=== PATIENT | male | born 1955 | race Caucasian/White ===

== ENCOUNTER 2020-04-05 10:48 | Outpatient (CLI) | payer OTHER, SELFPAY ==
--- NOTE | 2020-04-05 | DI.US_ITS ---
EXAM: US LOWER EXTREMITY VENOUS RT CLINICAL HISTORY: RT LOWER EXT SWELLING, PAIN. TECHNIQUE: Ultrasound performed using standard protocol. COMPARISON: No exams were available for comparison FINDINGS: Duplex venous ultrasound was performed according to the usual protocol. The deep veins are freely com pressible throughout and there is normal flow augmentation with manual calf compression. 2D and Doppl er evaluation are unremarkable. IMPRESSION: No evidence of deep venous thrombosis of the right lower extremity DATA REPOSITORY:
== END 2020-04-05 11:08 ==
PROVIDERS: Visit Provider Internal Medicine
DX: R22.41 Localized swelling, mass and lump, right lower limb (principal); M79.604 Pain in right leg
CPT/HCPCS: 93971

== ENCOUNTER 2022-12-31 02:39 | Outpatient (CLI) | payer MEDICARE, SELFPAY ==
[2022-12-31 10:58] LABS: INR 1.4 (0.9-1.1); Prothrombin Time 14.5 sec (9.3-11.0)
== END 2022-12-31 02:40 | disposition home or self-care (01) ==
PROVIDERS: Visit Provider Internal Medicine Cardiovascular Disease
DX: I48.92 Unspecified atrial flutter (principal)
CPT/HCPCS: 36415; 85610

== ENCOUNTER 2023-01-14 03:09 | Outpatient (CLI) | payer MEDICARE, SELFPAY ==
[2023-01-14 10:51] LABS: Prothrombin Time 21.7 sec (9.3-11.0)
[2023-01-14 10:52] LABS: INR 2.1 (0.9-1.1)
== END 2023-01-14 03:10 | disposition home or self-care (01) ==
PROVIDERS: Visit Provider Internal Medicine Cardiovascular Disease
DX: I48.91 Unspecified atrial fibrillation (principal); Z79.01 Long term (current) use of anticoagulants
CPT/HCPCS: 36415; 85610

== ENCOUNTER 2023-01-28 03:17 | Outpatient (CLI) | payer MEDICARE, SELFPAY ==
[2023-01-28 10:14] LABS: INR 2.2 (0.9-1.1); Prothrombin Time 22.1 sec (9.3-11.0)
== END 2023-01-28 03:18 | disposition home or self-care (01) ==
PROVIDERS: PCP Internal Medicine Cardiovascular Disease; Visit Provider Internal Medicine Cardiovascular Disease
DX: I48.92 Unspecified atrial flutter (principal)
CPT/HCPCS: 36415; 85610

== ENCOUNTER 2023-10-25 15:28 | Outpatient (REF) | payer MEDICARE, SELFPAY | END 2023-10-25 15:29 | disposition home or self-care (01) | LOC: LBN 15:28 | PROVIDERS: PCP Internal Medicine Cardiovascular Disease; Visit Provider Nurse Practitioner Family | DX: R21 Rash and other nonspecific skin eruption (principal); L98.8 Other specified disorders of the skin and subcutaneous tissue | CPT/HCPCS: 87070; 87205 ==

== ENCOUNTER 2024-09-13 13:44 | Outpatient (CLI) | payer MEDICARE, SELFPAY ==
--- NOTE | 2024-09-13 11:17 | DI.RAD_ITS ---
Exam(s) XR CHEST 2V PA LATERAL EXAM: XR CHEST 2V PA LATERAL CLINICAL HISTORY: Cough, R05.9; eval pna TECHNIQUE: 2D digital imaging was performed. Two views. COMPARISON: No exams were available for comparison FINDINGS: HEART: Normal size. Aorta: Not dilated. PULMONARY VASCULATURE: Normal. MEDIASTINUM: Unremarkable. LUNGS: Clear. PLEURAL SPACE: No pleural effusion or pneumothorax. BONE:Unremarkable for age. SOFT TISSUES: Unremarkable. IMPRESSION: No acute abnormality. DATA REPOSITORY: RADIATION DOSE DELIVERED:
--- OUTSIDE RECORDS SUMMARY | 2024-09-13 13:49 | XMS_ITS | Clinical Summary ---
Author Organization [facility] [place] Address [address] [place] [address] Care Team Providers Care Advertising Account Manager Name Role Phone Diane Null) Primary Care Provider [phone] Connie Crews) Unavailable [phone] Source Comments NOTE: The information displayed by Care Everywhere is extracted from the complete medical record and may not identify all current or past patient conditions.[facility] Allergies Active Allergy Reactions Criticality Noted Date Comments Penicillins Class Rash 12/26/2017 Yet, patient is able to tolerate Amoxil and Keflex Medications Medication Sig Dispensed Refills Start Date End Date Status urine acetone test,strips (Ketostix) Misc StripsIndications :DM 1 Use as directed 100 Strip 2 12/05/2020 Active Fluticasone (FLONASE ALLERGY RELIEF) 50 mcg/actuation Nasl SpSnIndications:B ACTERIAL INFECTION Use 1 [place] in each nostril 2 times a day 16 g 3 12/06/2020 Active Apixaban (Eliquis) 5 mg Oral TabIndications:AT RIAL FLUTTER, UNSPECIFIED Take 1 tablet by mouth 2 times a day 200 tablet 3 01/06/2021 Active Insulin Glargine (LANTUS) 100 unit/mL SubQ SolnIndications:D M 1 Inject subcutaneously as directed for pump failure to control blood glucose 10 mL 3 01/24/2021 Active Mupirocin (CENTANY) 2 % Top OintIndications:I NFECTED SEBACEOUS CYST Apply to affected area(s) 2 times a day 22 g 06/22/2021 Active Active Problems Problem Noted Date Diagnosed Date SEASONAL ALLERGIC RHINITIS 11/27/2020 PROTHROMBOTIC STATE. 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 01/22/2018 DM 1 W LEFT PROLIFERATIVE RETINOPATHY 01/22/2018 OSTEOARTHRITIS OF BILAT KNEES 01/19/2018 CASE / CARE MGMT, DIABETES INTENSIVE MONITORING 01/15/2018 Overview (01/15/2018): Johanna Rutherford RN CDE [facility] [address] [address] Hours: Friday - [place]: 9:30am - 5:00pm If you need an appointment or assistance please call [phone] FITTING OR ADJUSTMENT OF INSULIN PUMP 01/13/2018 Overview (02/26/2021): Tandem T:SlimX2 insulin pump with Control IQ Dex[employer] G6 cgms Humalog insulin [id number] infusion sets Pump settings: Time Basal Rate ISR ICR Target 00:00 1.40->1.35 units/hr 1u: 12 mg/dl 1u: 4.5 g 120 mg/dl 06:00->4A 1.75 units/hr 1u: 12 mg/dl 1u: 4.0 g 120 mg/dl 14:00->2P 1.40 units/hr 1u: 12 mg/dl 1u: 4.0->3.5 g 120 mg/dl 22:00 1.40 units/hr 1u: 12 mg/dl 1u: 4.0 g 120 mg/dl Duration of Insulin: 3 hours Change Sleep Schedule to 11PM-9AM Turned Quick Bolus feature off PRESENCE OF CONTINUOUS GLUCOSE MONITOR 8 DM 1 01/12/2018 GOUT 01/12/2018 ADULT OBSTRUCTIVE SLEEP APNEA 01/12/2018 FHX OF PROSTATE CANCER 01/12/2018 Overview (01/12/2018): Father FHX OF COLON CANCER 01/12/2018 Overview (01/12/2018): Sister, diagnosed at age 50's. Did colonoscopy at [facility] on 2014 FHX OF LEUKEMIA 01/12/2018 Overview (01/12/2018): Sister FHX OF CAD 01/12/2018 Overview (01/12/2018): Mother SEVERE OBESITY (BMI >= 40) 01/12/2018 VENOUS STASIS EDEMA OF BILAT LEGS 01/12/2018 LONG-TERM NON WARFARIN ORAL ANTICOAGULANT THERAP Y 12/31/2017 Overview (04/14/2019): Apixaban (Eliquis) 5mg BID Indications: Aflutter, No TTE available Expected length of therapy: Further work up is needed Considerations: GI intolerance to Pradaxa. HC pool: P [facility] PHARMACY SERVICE Periop Guideline Reference: Go to Clinical Library ==> Search: Anticoagulation Management - Perioperative- Anticoagulation Services Guideline ATRIAL FLUTTER, UNSPECIFIED 12/30/2017 HTN (HYPERTENSION) 12/30/2017 Resolved Problems Problem Noted Date Diagnosed Date Resolved Date BILAT CATARACT 12/21/2018 12/29/2018 DM 2 W BILAT MODERATE NONPRO LIFERATIVE RETINOPATHY 01/22/2018 01/22/2018 DM 1 W BILAT MODERATE NONPRO LIFERATIVE RETINOPATHY 01/22/2018 01/22/2018 DM 2 12/30/2017 01/12/2018 ANTICOAGULATION MONITORING, PHYSICIAN MANAGED 12/27/19 18 12/31/2017 Overview (12/26/2017): Apixaban (Eliquis) 5mg BID Indications: To be determined per MD/econsult Expected end of therapy date: To be determined per MD/econsult Considerations: [facility] Pharmacy Safety Net Program pending eConsult HC pool: P [facility] PHARMACY SERVICE Periop Guideline Reference: Go to Clinical Library ==> Search: Anticoagulation Management - Perioperative- Anticoagulation Services Guideline Immunizations Name Administration Dates Next Due COVID-19 Moderna, External Administration 2020 COVID-19 mRNA, LNP-S, PF (Elias coello), Patient Reported / Not Verified 10/27/2020,09/28/2020 INFS Pres Free 18yrs-adult ( Flublok quadrivalent) recomb (influenza) 06/02/2019 INFS pres free 65 yrs and ov er high dose (Fluzone quadrivalent 06/20/2021 INFS pres free 6mos-adult (F luarix quadrivalent) (influenza) 06/10/2018 INFS, external administration 07/09/2020 PCV13 ([id number]) (Pneumococcal conjugate, 13 va lent) 06/02/2019 PPSV23 (Pneumococcal polysaccharide) 06/10/2018 Tdap (Tetanus, diphtheria, acellular pertussis) 12/06/2017 ZOS (Herpes zoster recombinant) Shingrix 022 Social History Tobacco Use Types Packs/Day Years Used Date Smoking Tobacco: Never Smokeless Tobacco: Never Tobacco Cessation:Counseling Given: No Alcohol Use Standard Drinks/Week Comments No 0 (1 standard drink = 0.6 oz pur e alcohol) Substance Use Types Use/Week Comments No Sex and Gender Information Value Date Recorded Sex Assigned at Not on file Gender Identity Not on file Sexual Orientation Not on file Last Filed Vital Signs Vital Sign Reading Time Taken Comments Blood Pressure 125/61 08/21/2021 11:59 AM PST Pulse 89 08/21/2021 11:59 AM PST Temperature 29.4 ??C (84.9 ??F) 08/21/2021 1 1:59 AM PST Respiratory Rate 20 02/19/2019 11:4 0 PM PDT Oxygen Saturation 98% 08/21/2021 11: 59 AM PST Inhaled Oxygen Concentration - - Weight 187.9 kg (414 lb 4.8 oz) 022 11:59 AM PST Height 177.8 cm (5' 10) 08/21/2021 11: 59 AM PST Body Mass Index 59.45 08/21/2021 11:59 AM PST Plan of Treatment Health Maintenance Due Date Last Done Comments HEPATITIS B HIGH RISK VACCINE (1) 2054 REVIEW: HEPATITIS B HIGH RISK VACCINE 2054 Care Teams Advertising Account Manager Relationship Specialty Start Date End Date Diane Null) [address] [place] [address] [phone] (Work) [phone] (Fax) PCP - General 12/25/17 Connie Crews) [address] [place] [address] [phone] (Work) Anesthesiologist Attending ? DM Type 1 / Pump Endocrine Diabetes/Metabolism 04/02/18
--- OUTSIDE RECORDS SUMMARY | 2024-09-13 13:49 | XMS_ITS | Clinical Summary ---
Author Organization [facility] Address [address] [place] [address] Phone Care Team Providers Care Machine Shop Instructor Name Role Phone Mei Otto Unavailable Conditions or Problems No information available. Medications No information available. Medications Administered No information available. Allergies, Adverse Reactions, Alerts No information available. Results Date Name Value Unit Range Flag Description Lab Report: COMPLETE BLOOD C OUNT MPV 8.9 UM*3 fL 7.4-10.4 Platelet me an volume [Entitic volume] in Blood by Baljinder RDW 13.0 % 11.5-14.5 Erythrocyte distribution width [Ratio] by Automated count MCHC 34.6 % 31.0-35.5 MCHC [Mass/ volume] by Automated count MCH 29.2 pg 26-34 MCH [Entitic mass] by Automated count MCV 84.4 fL 80-99 MCV [Entitic volume] by Automated count RBC 5.60 10*6/mm3 3.9-5.5 H Erythrocytes [#/volume] in Blood by Automated count BASOPH COUNT 0.1 10*3/mm3 0-0.30 Basophi ls [#/volume] in Blood by Manual count EOS COUNT 0.3 10*3/mm3 0-0.45 eosinophil count, blood MONOCYTE CNT 0.5 10*3/mm3 0-0.8 monocyt e count, blood LYMPH COUNT 1.9 10*3/mm3 1.0-4.0 lymphocy te count, blood NEUTRO COUNT 7.9 10*3/mm3 1.8-7.7 H neutrop hil count, blood BASOPHIL % 0.6 % 0-3 Basophils/ 100 leukocytes in Blood by Manual count EOSINOPHIL % 2.4 % 0-8 Eosinoph ils/100 leukocytes in Blood by Manual count MONOCYTE % 5.1 % 0-12 Monocytes/ 100 leukocytes in Blood by Automated count LYMPHS % 17.4 % 20-44 L Lymphocytes/ 100 leukocytes in Blood by Automated count PMN % 74.5 % 41-75 Neutrophils/1 00 leukocytes in Blood by Automated count PLATELETS 304 10*3/mm3 140-440 Platelets [#/volume] in Blood by Automated count HCT 47.2 % 39.8-52.0 Hematocrit [Volume Fraction] of Blood by Automated count HGB 16.3 g/dL 13.6-16.1 H Hemoglobin [Mass/volume] in Blood WBC 10.7 10*3/mm3 4.0-10.0 H Leukocytes [#/volume] in Blood by Automated count Lab Report: COMPREHENSIVE ME TABOLIC PANEL, GFR ESTIMATED (CALC), GLOBULI ... LIPASE SERUM 238 U/L 70-350 lipase, serum AMYLASE 56 U/L 30-118 Amylase [Enzy matic activity/volume] in Serum or Plasma A/G RATIO 0.8 Albumin/Kae bulin [Mass Ratio] in Serum or Plasma GLOBULIN TOT 4.3 g/dL 2.3-4.0 H Globulin [Mass/volume] in Serum GFRC > 60 mL/min/1 .73m2 > 60 Glomerular Filtration Rate Calculation SGPT (ALT) 50 U/L 10-49 H Alanine aminotransferase [Enzymatic activity/volume] in Serum or Plasma SGOT (AST) 33 U/L 15-40 Aspartate aminotransferase [Enzymatic activity/volume] in Serum or Plasma ALK PHOS 182 U/L 50-136 H Alkaline ish sphatase [Enzymatic activity/volume] in Blood BILI TOTAL 0.3 mg/dL 0.3-1.2 Bilirubin. total [Mass/volume] in Serum or Plasma ALBUMIN 3.4 g/dL 3.4-5.5 Albumin [Mass/volume] in Serum or Plasma PROTEIN, TOT 7.7 g/dL 6.4-8.3 Protein [Mass/volume] in Serum or Plasma CALCIUM 9.1 mg/dL 8.3-10.3 Calcium [Moles/volume] in Serum or Plasma CREATININE 1.1 mg/dL 0.5-1.3 Creatinine [Mass/volume] in Serum or Plasma BUN 17 mg/dL 9-23 Urea nitrogen [Mass/volume] in Serum or Plasma BG RANDOM 123 mg/dL 70-100 H Glucose [Mass/volume] in Blood ANION GAP 7 mEq/L 2-13 Anion gap 4 in Serum or Plasma CO2 TOTAL 30 MEQ/L mmol/L 22-34 carbon didi xide, serum, total CL SERUM 100 meq/L 99-113 Chloride [Moles/volume] in Serum or Plasma K SERUM 3.5 meq/L 3.5-5.5 Potassium [Moles/volume] in Serum or Plasma SODIUM 137 MEQ/L mmol/L 135-145 Sodium [Moles/volume] in Serum or Plasma Lab Report: TROPONIN ULTRA TROPONIN T < 0.015 ng/mL 0.0-0.779 troponin T Lab Report: THYROID STIMULAT ING HORMONE TSH ULTRA 3.660 u[iU]/mL 0.550-4.780 thyroi d stimulating hormone (TSH), ultra sensitive Lab Report: URINALYSIS EMERG ENCY DEPT WBC ESTERASE NEG NEGATIVE leukocy te (WBC) esterase, urine NITRITE UA NEG NEGATIVE Nitrite U rine UROBILINO UR 0.2 (?) {Nikki _U}/dL 0.2 urobilinogen, urine PROTEIN UR NEG mg/dL NEGATIVE Protein [ Mass] in Urine collected for unspecified duration BLOOD UR NEG NEGATIVE BLOOD, URIN E (hematuria) KETONES UA NEG mg/dL NEGATIVE Ketones [Mass/volume] in Urine by Test strip BILIRUBIN UR NEG NEGATIVE Bilirub in.total [Presence] in Urine by Test strip GLUCOSE UA NEG mg/dL NEGATIVE Glucose U rine SPEC GR URIN 1.015 1.005-1.025 Spec ific gravity of Urine by Test strip PH U QN 6.0 5.5-7.5 ph, urine, quantitative APPEARANCE U CLEAR CLEAR Appearan ce of Urine UA COLOR YELLOW Color of Uri ne Lab Report: GLUCOSE FOR POCT BG FINGER 103 72-137 blood gluco se, finger stick Plan of Care No information available. Procedures No information available. Vital Signs No information available. Immunizations No information available. Advance Directives No information available.
--- OUTSIDE RECORDS SUMMARY | 2024-09-13 13:49 | XMS_ITS | Encounter Summary ---
Author Organization [facility] Address [phone] [facility] [place] [address] Care Team Providers Care Language Instructor Name Role Phone Zuniga, Sanam Little DO Primary Care Provider Encounter Details Date Type Department Care Team (Late st Contact Info) Description 05/20/2024 8:30 AM EDT Office Visit [facility] [address] [address] Karlos Thayer DPM [address] [address] [email or web address] Tinea pedis of both feet (Primary Dx); Onychomycosis; Pain in toes of both feet; Pain in left foot Social History Tobacco Use Types Packs/Day Years Used Date Smoking Tobacco: Unknown Education Answer Date Recorded Are you interested in more education? Not on sergey e 12/07/2022 Are you concerned about learning? Not on file 12/07/2022 No 12/07/2022 No 12/07/2022 Digital Access Answer Date Recorded No 01/05/2023 No 01/05/2023 Reliable internet access at home? Not on file 01/05/2023 Device with a working camera? Not on file Sex and Gender Information Value Date Recorded Sex Assigned at Not on file Gender Identity Not on file Sexual Orientation Not on file documented as of this encounter Progress Notes * Karlos Thayer DPM - 05/20/2024 8:30 AM EDT Images from the original note were not included. CC: Tinea pedis, pain in toes HPI: This is a 69 y.o. male patient with past medical history as below presenting today for follow-up tinea pedis and toe pain. Pressure injury has resolved. Reports he is still dealing with skin irritation to the plantar lateral aspects of his feet. Wondering if he should additionally use spray inhis shoewear. He does not typically wear socks in his shoes because it is more comfortable and thiscould be part of his problem. Difficult to apply lotion himself so his significant other does help.Pain secondary to elongated, thickened nails. Patient does have new pain to left foot that he contributes to gouty flare. Recently started allopurinol which helps him significantly. Patient denies other conservative therapies or acute constitutional symptoms. Previsit review of the patient's medical record. Alert oriented x3. The patient is calm (no distress), Alert, Eye Contact, Normal Affect, Cooperative, Normal Speech. Appearance and Behavior Appropriate for Age. Medical record EPIC reviewed. The medication and social history were reconciled. REVIEW OF SYSTEMS: The following systems were reviewed and were negative unless otherwise mentionedin this note: Constitutional, Eyes, Ears, Cardiovascular, Respiratory, Gastrointestinal, Genitourinary, Musculoskeletal, Skin, Neurologic, Psychiatric, Endocrine, and Hematology. Medical history/medications/allergies reviewed with patient, there have been no changes since the patients last visit with primary care. Cayden Lopez is a 69 y.o. male with the following history as recorded in [facility]: Patient Active Problem List Diagnosis Date Noted Class 3 severe obesity due to excess calories with serious comorbidity and body mass index (BMI) of50.0 to 59.9 in adult 08/12/2023 Diabetes mellitus 08/12/2023 Primary hypertension 08/12/2023 Atrial fibrillation 08/12/2023 Obstructive sleep apnea syndrome 08/12/2023 Mixed hyperlipidemia 08/12/2023 Current Outpatient Medications Medication Sig Dispense Refill Last Dispense buPROPion (WELLBUTRIN SR) 150 MG SR 12 hr tablet Unknown (patient-reported) clotrimazole-betamethasone (LOTRISONE) cream Apply topically 2 (two) times a day. 90 g 4 Unknown (outside pharmacy) furosemide (LASIX) 20 MG tablet Unknown (patient-reported) JANTOVEN 2.5 mg tablet Unknown (patient-reported) metFORMIN (GLUCOPHAGE-XR) 500 MG 24 hr tablet Unknown (patient-reported) NOVOLOG U-100 INSULIN ASPART 100 unit/mL injection vial Unknown (patient-reported) OZEMPIC 0.25 mg or 0.5 mg (2 mg/3 mL) subcutaneous injection pen Unknown (patient-reported) quinapriL (ACCUPRIL) 10 MG tablet Take 25 mg by mouth daily. Unknown (patient-reported) simvastatin (ZOCOR) 40 MG tablet Unknown (patient-reported) No current facility-administered medications for this visit. Allergies: Penicillins No past medical history on file. No past surgical history on file. No family history on file. Social History Tobacco Use Smoking status: Unknown Smokeless tobacco: Not on file Substance Use Topics Alcohol use: Not on file OBJECTIVE EXAM: Vascular: Pedal pulses palpable 2/4 DP/PT b/l. CR <3 sec to digits b/l. Hair growth present, negative Hohmann???s or García???s sign, no palpable cord to b/l calves. Dermatologic: No open wounds, no ecchymosis to lateral left heel. No signs of pressure injury. Bilateral plantar foot with diffuse annular scaling. Nails discolored and thickened indicative of onychomycosis. Erythema has resolved. Psychiatric/Neurological: Appropriate affect, alert and oriented to person, place and time, no significant abnormality in coordination appreciated. Protective sensation intact via Ipswitch b/l, proprioception intact to peripheral lower extremities Musculoskeletal: Gait analysis reveals non-antalgic gait. Standing there is no significant hindfootmalalignment or asymmetry. b/l 1st MPJ ROM intact, midtarsal joint ROM intact, STJ ROM intact, AJ ROM intact with adequate ROM in knee extension and flexion. Muscle strength 5/5 to all compartments b/l d/p/i/e. Pain to palpation all toes. Mild tenderness to palpation left second MPJ. Radiographic examination: Previous x-ray read below No signs of fracture or dislocation. Soft tissue anatomy within normal limits. No signs of infection. ASSESSMENT: Tinea pedis, bilateral Stage I pressure injury left heel, resolved Pain in toes of both feet Onychomycosis Left foot pain PLAN: Extended conversation concerning the above assessment(s) along with local anatomic structures, aggravating factors, conservative and interventional treatments as well as review of prior documentationand other pertinent materials. Explained etiology of tinea pedis. Explained that topical treatment or oral terbinafine are the best treatments for tinea pedis. Recommended Tinactin spray and patient shoes as well as changing socksat least once per day to decrease chance for infection. Continue with Lotrisone as needed. If symptoms worsen or continue can consider regular use of topical antifungal medications such as ketoconazole, econazole. He can also utilize fungal spray if difficult to apply cream daily. Also should sprayshoewear. Would recommend increased frequency of application in addition to wearing socks more frequently. Patient also has symptoms to hands and head and should consider dermatology evaluation Patient to continue to decrease pressure to left heel especially while sleeping with offloading blankets. He can also pursue Prevalon boot to help with offloading as well. Debridement of nails was accomplished utilizing both manual electrical means, bilaterally x 10 by 50% of original thickness and in length. This was accomplished without incident. Post debridement instructions were given and fully understood by the patient. All questions were answered. We discussed different styles of socks for patient to wear. Recommend Sharath white cotton sock. Patient to continue to monitor pain to left second toe and first interspace. He contributes to gouty flare. Recently started allopurinol which has helped. If symptoms continue we can consider oral anti-inflammatory medication or metatarsal pad offloading. Greater than 20 minutes spent in consultation with this patient as well as charting, including a component of previsit evaluation chart review and image review as needed prior to discussing with the patient. Additional time was spent discussing the diagnosis and care. Greater than 50% of that time was spent discussing the presenting condition and pathology as well as direct patient examination, counseling the patient on their condition, and coordinating care with a patient specific treatment plan to ensure a favorable outcome. All questions were answered with the patient and/or accompanying proxy demonstrating verbal understanding of the above. Advised the patient to contact our offices if any questions, concerns, or increased symptoms arise. Return to office: 3 months, evaluate tinea pedis, deep tissue injuries, nail care if needed Karlos Thayer DPM This note was generated with a voice recognition software please excuse any errors or omissions documented in this encounter Plan of Treatment Upcoming Encounters Date Type Department Care Team (Late st Contact Info) Description 11/18/2024 9:15 AM EDT Office Visit [facility] [address] [address] Karlos Thayer DPM [address] [address] [email or web address] documented as of this encounter Visit Diagnoses Diagnosis Tinea pedis of both feet- Primary Onychomycosis Dermatophytosis of nail Pain in toes of both feet Pain in left foot Pain in soft tissues of limb documented in this encounter Care Teams Language Instructor Relationship Specialty Start Date End Date Sanam Zuniga DO [address] [place] [phone] PCP - General Family Medicine 12/04/22 documented as of this encounter Additional Source Comments The information contained in this document represents components of the legal health record. It is not the complete legal health record.[facility]
--- OUTSIDE RECORDS SUMMARY | 2024-09-13 13:49 | XMS_ITS | Clinical Summary ---
Author Organization [facility] Address [phone] Formerly [facility] [address] [place] [address] Care Team Providers Care Diesel Maintenance Electrician Name Role Phone Efrain Sanam Little DO Primary Care Provider Allergies Active Allergy Reactions Criticality Noted Date Comments Penicillins Rash Low 12/05/2023 Medications Medication Sig Dispensed Refills Start Date End Date Status buPROPion (WELLBUTRIN SR) 150 MG SR 12 hr tablet 05/05/2023 Active quinapriL (ACCUPRIL) 10 MG tablet Take 25 mg by mouth daily. Active simvastatin (ZOCOR) 40 MG tablet 05/05/2023 Active NOVOLOG U-100 INSULIN ASPART 100 unit/mL injection vial 06/22/2023 Active metFORMIN (GLUCOPHAGE-XR) 500 MG 24 hr tablet 05/25/2023 Active OZEMPIC 0.25 mg or 0.5 mg (2 mg/3 mL) subcutaneous injection pen 06/29/2023 Active JANTOVEN 2.5 mg tablet 05/28/2023 Ac tive furosemide (LASIX) 20 MG tablet 03/08/2022 Active clotrimazole-betametha sone (LOTRISONE) cream Apply topically 2 (two) times a day. 90 g 4 12/02/2023 Active Active Problems Problem Noted Date Diagnosed Date Class 3 severe obesity due t o excess calories with serious comorbidity and body mass index (BMI) of 50.0 to 59.9 in adult 08/12/2023 Overview (08/12/2023): He was normal healthy weight until approximately age 39. Was able to lose weight in the past couple of years with a low calorie meal replacement program. Has never tried medicine has been told he should get surgery but has not considered seriously. Contributions to obesity include family history lack of exercise dining out. Complications of obesity include sleep apnea, diabetes, A-fib, hyperlipidemia. He is a surgical candidate. He is a candidate for antiobesity medicines. Would not use phentermine due to A-fib and hypertension. Assessment & Plan (08/12/2023 1:08 PM EST): Reviewed lifestyle medications and surgery with him in some detail. He was prescribed Ozempic by his manager administration and he took it briefly but had to stop for procedure and has not resumed it. Discussed with him that either Ozempic or Mounjaro would be excellent choices given his diabetes but given his high BMI it would be appropriate to consider surgery as well. He did ask briefly about balloon insertion as it had been recommended by his advertising consultant. Reviewed this briefly with him as well as endoscopic sleeve gastrectomy and explained insurance issues with these. After discussion he opted to learn about surgery. Additionally he is meeting with his manager administration soon and will discuss either resuming Ozempic or seeing if he can get on Mounjaro in the meantime. Recommended if he does get surgery to follow-up with me 6 months after surgery. Diabetes mellitus 08/12/2023 Overview (08/12/2023): He is on insulin using a pump. He gets care through the [facility] and I do not have access to records for further details on his diabetes. Primary hypertension 08/12/2023 Overview (08/12/2023): He is on Accupril Atrial fibrillation 08/12/2023 Overview (08/12/2023): He is on Coumadin Obstructive sleep apnea syndrome 08/12/2023 Overview (08/12/2023): He uses CPAP Mixed hyperlipidemia 08/12/2023 Overview (08/12/2023): He takes Lipitor Encounters Date Type Department Care Team Description 08/19/2024 9:00 AM EST Office Visit [facility] [address] [address] Karlos Thayer DPM Onychomycosis (Primary Dx); Pain in toes of both feet; Tinea pedis of both feet from Last 3 Months Social History Tobacco Use Types Packs/Day Years Used Date Smoking Tobacco: Unknown Tobacco Cessation:Counseling Given: Not Answered Education Answer Date Recorded Are you interested [...] Sign Reading Time Taken Comments Blood Pressure 154/85 12/05/2023 6:04 PM EDT Pulse 98 12/05/2023 6:04 PM EDT Temperature 38.1 ??C (100.6 ??F) 12/05/2023 6:04 PM E DT Respiratory Rate 24 12/05/2023 6:04 PM EDT Oxygen Saturation 96% 12/05/2023 6:04 PM EDT Inhaled Oxygen Concentration - - Weight 164.2 kg (362 lb) 12/05/2023 6:04 PM EDT Height 177.8 cm (5' 10) 12/05/2023 6:04 PM EDT Body Mass Index 51.94 12/05/2023 6:04 PM EDT Plan of Treatment Upcoming Encounters Date Type Department Care Team (Late st Contact Info) Description 11/18/2024 9:15 AM EDT Office Visit [facility] [address] [address] Karlos Thayer DPM [address] [address] Health Maintenance Due Date Last Done Comments Adult Td,Tdap Booster 1954 BLOOD PRESSURE 1954 DEPRESSION SCREENING 1966 SMOKING Hx and SMOKELESS TOBACCO SCREENING 1967 HEPATITIS B SCREENING 1972 HEPATITIS C SCREENING 1972 COLOGUARD 1999 COLONOSCOPY 1999 COLORECTAL CANCER SCREENING 1999 FIT TEST 1999 FOBT 1999 SIGMOIDOSCOPY 1999 VIRTUAL COLONOSCOPY 1999 ZOSTER VACCINES (1 of 2) 2004 RSV VACCINE (1 - Risk 60-74 years 1-dose series) 2014 INFLUENZA VACCINE (#1) 2024 COVID-19 VACCINE ( season) 2024 02/25/2022, 10/27/2020, 09/28/2020 HEMOGLOBIN A1C 01/23/2025 07/25/2024, 02/09, 11/28/2023, Additional history exists CREATININE LEVEL 03/05/2025 03/05/2024, 12/16/2023 POTASSIUM LEVEL 03/05/2025 03/05/2024 DIABETIC EYE EXAM 05/20/2025 05/20/2024, , 01/22/2018, Additional history exists PNEUMOCOCCAL VACCINES (50+ years) Completed 02/25/2022 HEPATITIS A VACCINES Aged Out No long er eligible based on patient's age to complete this topic HEPATITIS B VACCINES Aged Out No long er eligible based on patient's age to complete this topic HIB VACCINES Aged Out No longer eligi ble based on patient's age to complete this topic MENINGOCOCCAL VACCINES (ACWY) Aged Out No longer eligible based on patient's age to complete this topic Medical Devices Not on file Care Teams Diesel Maintenance Electrician Relationship Specialty Start Date End Date Sanam Zuniga DO [address] [place] [phone] PCP - General Family Medicine 12/04/22 Additional Source Comments The information contained in this document represents components of the legal health record. It is not the complete legal health record.[facility]
--- OUTSIDE RECORDS SUMMARY | 2024-09-13 13:49 | XMS_ITS | Encounter Summary ---
Author Organization [facility] Address [phone] Formerly [facility] [place] [address] Care Team Providers Care Wood Lathe Operator Name Role Phone Zuniga, Sanam Little DO Primary Care Provider Encounter Details Date Type Department Care Team (Late st Contact Info) Description 02/19/2024 8:45 AM EDT Office Visit [facility] [address] [address] Karlos Thayer DPM [address] [address] [email or web address] Tinea pedis of both feet (Primary Dx); Onychomycosis; Pain in toes of both feet Social History Tobacco Use Types Packs/Day Years [...] Progress Notes * Karlos Thayer DPM - 02/19/2024 8:45 AM EDT Images from the original note were not included. CC: Tinea pedis, pain in toes HPI: This is a 68 y.o. male patient with past medical history [...] help.Pain secondary to elongated, thickened nails. Patient denies other conservative therapies or acute c onstitutional symptoms. Previsit review of the patient's medical [...] with primary care. Cayden Lopez is a 68 y.o. male [facility] the [facility] Patient Active Problem List Diagnosis Date Noted [...] signs of pressure injury. Bilateral plantar foot diffusely erythematous with annular scaling. Nails discolored and thickened indicative of onychomycosis. Psychiatric/Neurological: Appropriate affect, alert and oriented to [...] b/l d/p/i/e. Pain to palpation all toes. Radiographic examination: Previous x-ray read below No signs of fracture or dislocation. Soft tissue anatomy within normal limits. No signs of infection. ASSESSMENT: Tinea pedis, bilateral Stage I pressure injury left heel, resolved Pain in toes of both feet Onychomycosis PLAN: Extended conversation concerning the above assessment(s) [...] to decrease chance for infection. Continue with Lotrisone. He can also utilize fungal spray if difficult to apply cream daily. Also should spray shoewear. Would recommend increased frequency of application in addition to wearing socks more frequently. Patient to continue to decrease pressure to [...] to wear. Recommend Sharath white cotton sock. Greater than 20 minutes spent in consultation [...] Description 11/18/2024 9:15 AM EDT Office Visit [facility] [address] [address] Karlos Thayer DPM [address] [address] [email or web address] documented as of this encounter Visit Diagnoses Diagnosis Tinea pedis of both feet- Primary Onychomycosis Dermatophytosis of nail Pain in toes of both feet documented in this encounter Care Teams Wood Lathe Operator Relationship Specialty Start Date End Date Sanam Zuniga DO [address] [place] [phone] PCP - General Family Medicine 12/04/22 documented as of this encounter Additional Source Comments The information contained in this document represents components of the legal health record. It is not the complete legal health record.[facility]
--- OUTSIDE RECORDS SUMMARY | 2024-09-13 13:49 | XMS_ITS | Encounter Summary ---
Author Organization [facility] Address [phone] [facility] [employer] [address] Care Team Providers Care Digital Printer Operator Name Role Phone Efrain Sanam Little DO Primary Care Provider [phone] Reason for Visit * Reason Comments flu like symptoms Encounter Details Date Type Department Care Team (Late st Contact Info) Description 12/05/2023 5:28 PM EDT - 12/05/2023 9:16 PM EDT Emergency [facility] [address] [place] [address] Discharge Disposition: Left Without Being Seen Social History Tobacco Use Types Packs/Day Years [...] on file documented as of this encounter Last Filed Vital Signs Vital Sign Reading [...] Mass Index 51.94 12/05/2023 6:04 PM EDT documented in this encounter Medications at Time of Discharge Medication Sig Dispensed Refills Start Date End Date buPROPion (WELLBUTRIN SR) 150 MG SR 12 hr tablet 05/05/2023 clotrimazole-betamethason e (LOTRISONE) cream Apply topically 2 (two) times a day. 90 g 4 12/02/2023 furosemide (LASIX) 20 MG tablet 03/08/2022 JANTOVEN 2.5 mg tablet 05/28/2023 metFORMIN (GLUCOPHAGE-XR) 500 MG 24 hr tablet 05/25/2023 NOVOLOG U-100 INSULIN ASPART 100 unit/mL injection vial 06/22/2023 OZEMPIC 0.25 mg or 0.5 mg (2 mg/3 mL) subcutaneous injection pen 06/29/2023 quinapriL (ACCUPRIL) 10 MG tablet Take 25 mg by mouth daily. simvastatin (ZOCOR) 40 MG tablet 05/05/2023 documented as of this encounter ED Notes * Wanda Castillo RN - 12/05/2023 6:04 PM EDT Pt arrives with sore throat, fatigue and inability to keep anything down since friday documented in this encounter Plan of Treatment Upcoming Encounters Date Type Department Care Team (Late st Contact Info) Description 11/18/2024 9:15 AM EDT Office Visit [facility] [address] [address] Karlos Thayer DPM [address] [address] documented as of this encounter Procedures Procedure Name Priority Date/Time Associated Diagnosis Comments RAPID STREP SCREEN W/ REFLEX STAT 12/05/2023 6:06 PM EDT COVID PANDEMIC RESPIRATORY VIRAL ORDER (PRO) STAT 12/05/2023 6:06 PM EDT THROAT CULTURE STAT 12/05/2023 6:06 PM EDT documented in this encounter Results * Throat culture (12/05/2023 6:06 PM EDT) Special Requests None 12/06/2023 8:57 AM EDT [facility] Beta Strep Culture NORMAL GOLDY PRESENT 12/06/2023 8:57 AM EDT [facility] Throat 12/05/2023 6:06 PM EDT 12/05/2023 6:32 PM EDT Protocol [facility] Emergency MICROBIOLOGY - GE NERAL ORDERABLES Performing Organization Address City/[facility]/ZIP Co de Phone Number [facility] [address] [phone] * COVID Pandemic Respiratory Viral Order (PRO) (12/05/2023 6:06 PM EDT) [facility] Test Ordered Rapid COVID, Flu, RSV has been ordered [facility] SPECIMEN SOURCE/DESCR IPTION NASOPHARYNGEAL SWAB [facility] SARS-CoV 2 (COVID-19) PCR Negative Negative [facility] Influenza A PCR NEGATIVE for INFLUENZA A NEGATIVE for INFLUENZA A [facility] Influenza B PCR NEGATIVE for INFLUENZA B NEGATIVE for INFLUENZA B [facility] RSV PCR NEGATIVE for RSV NEGATIVE for RSV [facility] Other (Nasopharyngeal swab) 12/05/2023 6:06 PM EDT 12/05/2023 6:29 PM EDT Protocol [facility] Emergency BODY FLUIDS AND S TOOLS ORDERABLES Performing Organization Address City/[facility]/ZIP Co de Phone Number [facility] [address] [phone] * Rapid strep screen w/ reflex (12/05/2023 6:06 PM EDT) RAPID STREP SCREEN NEGATIVE for GROUP A BETA STREP SCREEN [facility] Other (Throat) 12/05/2023 6: 06 PM EDT 12/05/2023 6:32 PM EDT Protocol [facility] Emergency MICROBIOLOGY - GE NERAL ORDERABLES [facility] [address] [place] [address] documented in this encounter Visit Diagnoses Not on filedocumented in this encounter Additional Health Concerns Infection Onset Date Last Indicated Resolved Time CoV-Risk 12/05/2023 12/05/2023 12/16/2023 1:22 AM EDT documented as of this encounter Care Teams Digital Printer Operator Relationship Specialty Start Date End Date Sanam Zuniga DO [address] [facility] [address] [place] [phone] PCP - General Family Medicine 12/04/22 documented as of this encounter Additional Source Comments The information contained in this document represents components of the legal health record. It is not the complete legal health record.[facility]
--- OUTSIDE RECORDS SUMMARY | 2024-09-13 13:49 | XMS_ITS | Encounter Summary ---
Author Organization [facility] Address [phone] [facility] [place] [address] Care Team Providers Care Seismic Engineer Name Role Phone Efrain Sanam Little DO Primary Care Provider [phone] Reason for Visit * Reason Onset Date Comments Labs 07/30/2023 Encounter Details Date Type Department Care Team (Late st Contact Info) Description 07/30/2023 Telephone [facility] [address] [place] [address] Order Mode, Investment Banking Analyst [address] [place] [address] Labs Social History Tobacco Use Types Packs/Day Years Used Date Smoking Tobacco: Never Assessed Education Answer Date Recorded Are you interested [...] as of this encounter Progress Notes * Denia Brenner - 07/30/2023 3:18 PM EST LVM for pt To complete new pt labs 2 weeks prior to upcoming appt on 08/12/23 Lab prep/Lab location sent via [facility] documented in this encounter Plan of Treatment Upcoming Encounters Date Type Department Care Team (Late st Contact Info) Description 11/18/2024 9:15 AM EDT Office Visit [facility] [address] [address] Karlos Thayer DPM [address] [address] [email or web address] documented as of this encounter Visit Diagnoses Not on filedocumented in this encounter Care Teams Seismic Engineer Relationship Specialty Start Date End Date Sanam Zuniga DO [address] [place] [phone] PCP - General Family Medicine 12/04/22 documented as of this encounter Additional Source Comments The information contained in this document represents components of the legal health record. It is not the complete legal health record.[facility]
--- OUTSIDE RECORDS SUMMARY | 2024-09-13 13:49 | XMS_ITS | Encounter Summary ---
Author Organization [facility] Address [phone] [facility] [email or web address] [address] Care Team Providers Care Blueberry Grower Name Role Phone Zuniga, Sanam Little DO Primary Care Provider [phone] Encounter Details Date Type Department Care Team (Late st Contact Info) Description 12/02/2023 9:30 AM EDT Office Visit [facility] [address] [address] Karlos Thayer DPM [address] [address] [email or web address] Tinea pedis of both feet (Primary [...] Progress Notes * Karlos Thayer DPM - 12/02/2023 9:30 AM EDT Images from the original note were not included. CC: Tinea pedis HPI: This is a 68 y.o. male patient with past medical history as below presenting today for follow-up left heel pain and pressure injury. Also to follow-up with athletes feet. Patient states he no longer has left heel pain. Pressure injury has resolved. Reports he is still dealing with skin irritation to the plantar lateral aspects of his feet. Has been utilizing a cream. In addition he has been using foot powder to help dry out his feet. He does not typically wear socks in his shoes because itis more comfortable and this could be part of his problem. Difficult to apply lotion himself so he applies it 3 times daily with the help of his significant other. Pain secondary to elongated, thickened nails. Patient denies [...] with the following history as recorded in [facility]: Patient Active Problem List Diagnosis Date [...] current facility-administered medications for this visit. Allergies: Patient has no allergy information on record. No past medical history on file. No [...] spray if difficult to apply cream daily. Would recommend increased frequency of applicationin addition to wearing socks more frequently. Patient [...] Description 11/18/2024 9:15 AM EDT Office Visit [facility] [address] [address] Karlos Thayer DPM [address] [address] [email or web address] documented as of this encounter Visit Diagnoses Diagnosis Tinea pedis of both feet- Primary Onychomycosis Dermatophytosis of nail Pain in toes of both feet documented in this encounter Care Teams Blueberry Grower Relationship Specialty Start Date End Date Sanam Zuniga DO [address] [place] [phone] PCP - General Family Medicine 12/04/22 documented as of this encounter Additional Source Comments The information contained in this document represents components of the legal health record. It is not the complete legal health record.[facility]
--- OUTSIDE RECORDS SUMMARY | 2024-09-13 13:49 | XMS_ITS | Encounter Summary ---
Author Organization [facility] Address [phone] [facility] [place] [address] Care Team Providers Care Change Management Administrator Name Role Phone Zuniga, Sanam Little DO Primary Care Provider [phone] Encounter Details Date Type Department Care Team ([facility] st Contact Info) Description 08/19/2024 9:00 AM EST Office Visit [facility] [address] [address] Karlos Thayer DPM [address] [address] [email or web address] Onychomycosis (Primary Dx); Pain in toes of both feet; Tinea pedis of both feet Social History Tobacco Use [...] Progress Notes * Karlos Thayer DPM - 08/19/2024 9:00 AM EST Images from the original note were not included. CC: Tinea pedis, pain in toes HPI: This is a 69 y.o. male patient with past medical history as below presenting today for follow-up tinea pedis and toe pain. Pressure injury has resolved. Reports he is still dealing with skin irritation to the plantar lateral aspects of his feet. He does not typically wear socks in his shoes bec ause it is more comfortable and this could be part of his problem. Difficult to apply lotion himself so his significant other does help. Pain secondary to elongated, thickened nails. Patient does have new pain to left foot that he contributes to gouty flare. Recently started allopurinol which helpshim significantly. Patient denies other conservative therapies or [...] [facility] the [facility]: Patient Active Problem List Diagnosis Date Noted [...] b/l d/p/i/e. Pain to palpation all toes. No tenderness to palpation left second MPJ. Radiographic [...] to wear. Recommend Sharath white cotton sock. Explained etiology and treatment options for fungal toenails including topical antifungals, PO antifungals and laser treatment as well as in extreme cases, nail removal. Explained to patient the slownail growth rate and that it can take 6-9 months to see results. We will order pre medication LFTs. Pending review of labs and discussion with patient will prescribe Diflucan 100 mg 3 times weekly for 12 weeks. Possible extension to 24 weeks pending progress. Patient is in agreement with this plan. Greater than 20 minutes spent in consultation [...] increased symptoms arise. Return to office: 3 months follow-up left great toenail, LFTs Karlos Thayer DPM This note was generated with a voice recognition software please excuse any errors or omissions documented in this encounter Plan of Treatment Upcoming Encounters Date Type Department Care Team (Late st Contact Info) Description 11/18/2024 9:15 AM EDT Office Visit [facility] [address] [address] Karlos Thayer DPM [address] [address] Scheduled Orders Name Type Priority Associated Diagnoses Orde r Schedule LFTs (hepatic panel) Lab Routine Onychomycosis Expected: 08/19/2024, Expires: 08/19/2025 documented as of this encounter Visit Diagnoses Diagnosis Onychomycosis- Primary Dermatophytosis of nail Pain in toes of both feet Tinea pedis of both feet documented in this encounter Care Teams Change Management Administrator Relationship Specialty Start Date End Date Sanam Zuniga DO [address] [place] [phone] PCP - General Family Medicine 12/04/22 documented as of this encounter Additional Source Comments The information contained in this document represents components of the legal health record. It is not the complete legal health record.[facility]
--- OUTSIDE RECORDS SUMMARY | 2024-09-13 13:49 | XMS_ITS | Encounter Summary ---
Author Organization [facility] Address [phone] [place] [address] Care Team Providers Care Drafter Cartographic Name Role Phone Sanam Zuniga DO Primary Care Provider + [phone] Reason for Visit * Consultation (Within 1 month) - Closed Specialty Diagnoses / Procedures Referred By Contac t Referred To Contact Diagnoses Morbid (severe) obesity due to excess calories System, Provider Not In, [facility] [address] [id number] [address] [place] [phone] Referral ID Status Reason Start Date Expiration Date Visits Re quested Visits Authorized [id number] Closed 11/01/2022 11/02/2023 1 1 Encounter Details Date Type Department Care Team (Late st Contact Info) Description 08/12/2023 9:30 AM EST Telemedicine [facility] [address] [place] [phone] Kell Schuler MD [address] [place], [place] [address] [place] [id number] [email or web address] Class 3 severe obesity due to excess calories with serious comorbidity and body mass index (BMI) of 50.0 to 59.9 in adult (Primary Dx); Type 2 diabetes mellitus with other specified complication, with long-term current use of insulin; Atrial fibrillation, unspecified type; Primary hypertension; Obstructive sleep apnea syndrome; Mixed hyperlipidemia Social History Tobacco Use Types Packs/Day Years [...] Sign Reading Time Taken Comments Blood Pressure - - Pulse - - Temperature - - Respiratory Rate - - Oxygen Saturation - - Inhaled Oxygen Concentration - - Weight 174.6 kg (385 lb) 08/12/2023 9:10 AM EST Height 177.8 cm (5' 10) 08/12/2023 9:10 AM EST Body Mass Index 55.24 08/12/2023 9:10 AM EST documented in this encounter Progress Notes * Kell Schuler MD - 08/12/2023 9:30 AM EST Images from the original note were not included. Assessment and Plan: Class 3 severe obesity due to excess calories with serious comorbidity and body mass index (BMI) of50.0 to 59.9 in adult (Primary) Overview: He was normal healthy weight until approximately age 39. Was able to lose weight in the past coupleof years with a low calorie meal replacement [...] due to A-fib and hypertension. Assessment & Plan: Reviewed lifestyle medications and surgery with him in some detail. He was prescribed Ozempic by his rehabilitation specialist and he took it briefly but had to stop for procedure and has not resumed it. Discussed with him that either Ozempic or Mounjaro would be excellent choices given his diabetes but given his high BMI it would be appropriate to consider surgery as well. He did ask briefly about ballooninsertion as it had been recommended by his vice president sales and marketing. Reviewed this briefly with him as well as endoscopic sleeve gastrectomy and explained insurance issues with these. After discussion he opted to learn about surgery. Additionally he is meeting with his rehabilitation specialist soon and will discuss either resuming Ozempic or seeing if he can get on Mounjaro in the meantime. Recommended if he does get surgery to follow-up with me 6 months after surgery. Type 2 diabetes mellitus with other specified complication, with long-term current use of insulin Overview: He is on insulin using a pump. He gets care through the [facility] and I do not have access to records for further details on his diabetes. Atrial fibrillation, unspecified type Overview: He is on Coumadin Primary hypertension Overview: He is on Accupril Obstructive sleep apnea syndrome Overview: He uses CPAP Mixed hyperlipidemia Overview: He takes Lipitor 1. The patient was counseled on the benefits of modest weight loss to improve their weight related co-morbidities; initial goal is a 10% weight reduction which translates into 38 lbs. 2. Lifestyle treatment reviewed. The patient was counseled on having a diet consisting of lean proteins, lots of fruits and vegetables, and keeping simple carbohydrates to a minimum. The benefits of both aerobic and resistance exercise were discussed. 3. Obesity comorbidities- Obstructive Sleep Apnea-yes hypertension -yes diabetes-yes hyperlipidemia-yes heart disease-has A-fib fatty liver-unknown GERD-has mild osteoarthritis-no PCOS-N/A 4. Other contributing factors: Binge eating/ emotional eating -no medication-no family history-yes 5. Medication, dietary, and surgical treatment options reviewed with patient, as appropriate. Afterdiscussion, plan consider surgery We appreciate the opportunity to participate in his care. Please contact us via .[employer] for any questions related to this consultation. Referred by: Caryl Hutson MD CC: Evaluation for the disease of obesity, review and discussion of treatment options. HPI: Cayden Lopez is a 68 y.o. male with overweight or obesity who presents for an initial evaluation. Body mass index is 55.24 kg/m??. Class 3 obesity. He states he was 165 pounds at age 23 weight went up and down at around this weight until age 39 atwhich point he became more sedentary and started eating out more and started gaining weight and progressively got worse highest weight was 487 pounds. A couple of years ago he was living in [place] and did a meal replacement plan I was able to get down to 350 pounds. He has tried hard to maintain this and is now at 385 pounds. His rehabilitation specialist referred him. Weight History Current view: Showing all answers [facility] Intake Question 08/11/2023 10:27 PM EST - Filed by Patient The following questions provide your doctor and care team with valuable information and allow them to take better care of you. Please note your answers may not be reviewed immediately. If you have anurgent medical question, please call your doctor's office. For emergencies, call 911. Your responses are confidential. By starting the questionnaire, you understand that your responses will become part of your medical record and may be visible in your Patient [place] portal. Get started REASON FOR VISIT 1. What are the reasons why you want to lose weight? Improve my general health Improve other chronic health conditions (e.g. diabetes, high blood pressure) Prevent chronic health conditions Look/Feel better 2. What treatments are you interested in? Surgery / Procedure Medications Counseling about nutrition, physical activity, and stress management strategies WEIGHT HISTORY 3. At what age did you start struggling with your weight? 39 4. What is your highest weight as an adult? 487 5. What is your lowest weight as an adult? 165 6. What is your desired weight? 180 7. What is your current height and weight? Height (inches): 70 Weight (pounds): 385 8. What do you think contributed most to your weight gain? Change in activity level Emotional factors Side effect of medicines What caused the change in activity level? Injury Lack of time Please specify the emotional factors that caused weight gain: Traumatic life event Chronic day to day stress Anxiety Depression Please specify the medication that caused weight gain: insulin 9. Have you tried losing weight in the past? Yes What methods have you used? Self-directed diets Please specify the self-directed diets you have tried: high protein, shakes and bars, exercise EATING PATTERNS 10. Do you eat when you have a negative emotion (feeling sad, stressed or worried)? Yes How often? Few times/month 11. Do you eat when you are bored? Yes How often? Few times/month 12. Do you eat ???junk foods?? or ???fast foods?? ? Yes How often? Few times/month 13. Are there times when you are unable to stop eating? No 14. Do you ever wake up at night and eat? No 15. How would you describe your portion size? Larger than most people 16. Do you tend to skip meals? No 17. Have you ever done any of the following to lose weight? None of the above PHYSICAL ACTIVITY 18. How would you describe your activity during a typical day at work or home? Sedentary (sit most of day) 19. Do you do any intentional physical activity? No MENTAL HEALTH TREATMENT 20. Have you ever seen a therapist for mental health treatment? Yes, saw therapist in the past SLEEP 21. On average, how many hours of sleep do you get? 8 or more hours 22. Do you often have trouble: Falling asleep? No Staying asleep? No 23. Do you work a night shift manager? No 24. Do you use a CPAP, BIPAP, or APAP device to help with sleep? Yes BMI (range: 1 - 100) 55.24 (Class 3 obesity) Psychiatric History: Depression on Wellbutrin Medications contributing to weight gain: None Contraception: N/A Eating Habits: No unusual eating habits 24 hour Diet Recall: Breakfast-Guamanian muffin eggs, cereal and berries, oatmeal. Lunch-nothing or salad with tuna or turkey. Dinner-fish sweet potato salad. Snack peanut butter crackers. No sugary liquids no alcohol. Obesity ROS Sleeps 8 hours a night. No glaucoma no kidney stones occasional GERD no pancreatitis Family history: Positive for obesity and heart disease negative for diabetes negative for thyroid cancer Past Medical and Surgical History: History reviewed. No pertinent past medical history. History reviewed. No pertinent surgical history. Social History: Is a retired property management. Walks 30 minutes twice a day Social History Socioeconomic History Marital status: /Civil Union Spouse name: Not on file Number of children: Not on file Years of education: Not on file Highest education level: Not on file Occupational History Not on file Tobacco Use Smoking status: Unknown Smokeless tobacco: Not on file Substance and Sexual Activity Alcohol use: Not on file Drug use: Not on file Sexual activity: Not on file Other Topics Concern Not on file Social History Narrative Not on file Social Determinants of Health Residential Stability: Not on file Vital Signs Ht 177.8 cm (5' 10) Wt (!) 174.6 kg (385 lb) BMI 55.24 kg/m?? Complex Vitals Row Name 08/12/23 0910 Height 177.8 cm (5' 10) Weight 174.6 kg (385 lb) BMI (Calculated) 55.24 BSA Wilson (Calculated - sq m) 2.76 sq meters BSA (Calculated - sq m) 2.93 sq meters Body mass index is 55.24 kg/m??. Virtual Physical Exam: via video Gen: No acute distress. Well appearing HEENT: normocephalic, atraumatic; sclera non-icteric; no acute abnormalities noted Resp: no increased WOB, no cough Skin: No obvious or stated evidence of acanthosis nigracans, hirsutism, cushingoid features or excessive skin tags Neuro: face is symmetric Psych: mood good, normal judgement Results: reviewed with the patient No visits with results within 3 Month(s) from this visit. Latest known visit with results is: System Generated on 11/16/2011 Component Date Value GRAM STAIN 11/16/2011 Value: Specimen: [id number] Collected 16-Nov-11 21:29 Received 16-Nov-11 21:32 Ordering Provider: ATNHONY ALEJANDRO DR, MD Specimen Group: TISSUE/BIOPSY/WOUND Specimen Type: LEG GRAM STAIN - Final Reported: 17-Nov-11 08:14 SMEARS NO WBC'S SEEN NO ORGANISMS SEEN WOUND CULTURE - Final Reported: 18-Nov-11 09:12 FEW BETA HEMOLYTIC STREP. GROUP B RARE STAPHYLOCOCCUS COAGULASE NEG WOUND CULTURE 11/16/2011 Value: Specimen: [id number] Collected 16-Nov-11 21:29 Received 16-Nov-11 21:32 Ordering Provider: ANTHONY ALEJANDRO DR, MD Specimen Group: TISSUE/BIOPSY/WOUND Specimen Type: LEG GRAM STAIN - Final Reported: 17-Nov-11 08:14 SMEARS NO WBC'S SEEN NO ORGANISMS SEEN WOUND CULTURE - Final Reported: 18-Nov-11 09:12 FEW BETA HEMOLYTIC STREP. GROUP B RARE STAPHYLOCOCCUS COAGULASE NEG Time spent: 60 minutes, >50% spent face to face in education and counseling on the disease of obesity and treatment recommendations including but not limited to nutrition, eating behaviors, stressreduction, sleep hygiene, pharmacologic management and bariatric surgery. This visit was conducted in a virtual environment using HIPPA-compliant technology. This real-time,interactive virtual clinical encounter was conducted using videoconferencing technology from clinicor home office. The patient participated in the visit from home/temporary residence or other location as specified below. Consent for virtual care, including informing the patient that insurance willbe billed, and that in-person care is available in case of emergencies or as needed otherwise, was discussed at the time of scheduling. Kell Schuler MD documented in this encounter Miscellaneous Notes * Assessment & Plan Note - Kell Schuler MD - 08/12/2023 1:08 PM EST Associated Problem(s): Class 3 severe obesity due to excess calories with serious comorbidity and body mass index (BMI) of 50.0 to 59.9 in adult Reviewed lifestyle medications and surgery with him in some detail. He was prescribed Ozempic by his rehabilitation specialist and he took it briefly but had to stop for procedure and has not resumed it. Discussed with him that either Ozempic or Mounjaro would be excellent choices given his diabetes but given his high BMI it would be appropriate to consider surgery as well. He did ask briefly about ballooninsertion as it had been recommended by his vice president sales and marketing. Reviewed this briefly with him as well as endoscopic sleeve gastrectomy and explained insurance issues with these. After discussion he opted to learn about surgery. Additionally he is meeting with his rehabilitation specialist soon and will discuss either resuming Ozempic or seeing if he can get on Mounjaro in the meantime. Recommended if he does get surgery to follow-up with me 6 months after surgery. documented in this encounter Plan of Treatment Upcoming Encounters Date Type Department Care Team (Late st Contact Info) Description 11/18/2024 9:15 AM EDT Office Visit [facility] [address] [address] Karlos Thayer, MOISESM [address] [address] [email or web address] documented as of this encounter Visit Diagnoses Diagnosis Class 3 severe obesity due to excess calories with serious comorbidity and body mass index (BMI) of 50.0 to 59.9 in adult- Primary Type 2 diabetes mellitus with other specified complication, with long-term current use of insulin Atrial fibrillation, unspecified type Primary hypertension Unspecified essential hypertension Obstructive sleep apnea syndrome Obstructive sleep apnea (adult) (pediatric) Mixed hyperlipidemia documented in this encounter Care Teams Drafter Cartographic Relationship Specialty Start Date End Date Sanam Zuniga DO [address] [place] [phone] PCP - General Family Medicine 12/04/22 documented as of this encounter Additional Source Comments The information contained in this document represents components of the legal health record. It is not the complete legal health record.[facility]
--- OUTSIDE RECORDS SUMMARY | 2024-09-13 13:50 | XMS_ITS | Encounter Summary ---
Author Organization [facility] Address [phone] [facility] [place] [address] Care Team Providers Care Manager Reliability Name Role Phone Iggy Merlos MD Primary Care Provider Encounter Details Date Type Department Care Team (Late st Contact Info) Description 09/18/2022 10:00 AM EST Office Visit [facility] [address] [address] Karlos Thayer DPM [address] [address] [email or web address] Pain in left foot (Primary Dx); Pressure injury of left heel, stage 1; Tinea pedis of both feet Social History Tobacco Use Types Packs/Day Years Used Date Smoking Tobacco: Never Assessed Sex and Gender Information Value Date Recorded Sex Assigned at Not on file Gender Identity Not on file Sexual Orientation Not on file documented as of this encounter Progress Notes * Karlos Thayer DPM - 09/18/2022 10:00 AM EST Images from the original note were not included. CC: Left heel pain HPI: This is a 67 y.o. male patient with past medical history as below presenting today for follow-up left heel pain and pressure injury. He needs his 's help to apply cream to the bottom of his feet so he does did not do this consistently only when his is around. He states his left heel pain is significantly better. Uses a blanket in his bed to keep his left foot elevated so he is not putting increased pressure on his heel. He is also wondering if he can have care to his nails today. Still complaining of itchiness and irritation to the lateral aspect of his right foot. Patient denies other conservative therapies or acute [...] with primary care. Cayden Lopez is a 67 y.o. male with the [facility]: There are no problems to display for this patient. Current Outpatient Medications Medication Sig Dispense Refill Last Dispense ??? clotrimazole-betamethasone (LOTRISONE) cream Apply topically 2 (two) times a day. 45 g 2 Unknown (outside pharmacy) No current facility-administered medications for this visit. Allergies: Patient has no allergy information on record. No past medical history on file. No past surgical history on file. No family history on file. Social History Tobacco Use ??? Smoking status: Not on file ??? Smokeless tobacco: Not on file Substance Use Topics ??? Alcohol use: Not on file OBJECTIVE EXAM: Vascular: Pedal pulses palpable 2/4 DP/PT b/l. CR <3 sec to digits b/l. Hair growth present, negative Hohmann???s or García???s sign, no palpable cord to b/l calves. Dermatologic: No open wounds, no ecchymosis to lateral left heel. No signs of pressure injury. Bilateral plantar foot diffusely erythematous with annular scaling. Psychiatric/Neurological: Appropriate affect, alert and oriented to [...] strength 5/5 to all compartments b/l d/p/i/e. Radiographic examination: Previous x-ray read below No signs of fracture or dislocation. Soft tissue anatomy within normal limits. No signs of infection. ASSESSMENT: Tinea pedis, bilateral Stage I pressure injury left heel, resolving Pain and left foot PLAN: Extended conversation concerning the above assessment(s) [...] spray if difficult to apply cream daily. Patient requesting more medication and I informed him that he does have 2 refills. Patient to continue to decrease pressure to left heel especially while sleeping with offloading blankets. He can also pursue Prevalon boot to help with offloading as well. We briefly discussed supportive shoe wear. I suggested patient visit [facility] to have his foot sized and fitted for a properly fitting shoe. I suggested the Roger beast as a good role model for a supportive shoe. Debridement of nails was accomplished utilizing both manual electrical means, bilaterally x 10 by 50% of original thickness and in length. This was accomplished without incident. Post debridement instructions were given and fully understood by the patient. All questions were answered. Greater than 20 minutes spent in consultation [...] or increased symptoms arise. Return to office: 6 to 8 weeks, evaluate nails and tinea pedis and check left heel Karlos Thayer DPM This note was generated with a voice recognition software please excuse any errors or omissions documented in this encounter Plan of Treatment Upcoming Encounters Date Type Department Care Team (Late st Contact Info) Description 11/18/2024 9:15 AM EDT Office Visit [facility] [address] [address] Karlos Thayer DPM [address] [address] [email or web address] documented as of this encounter Visit Diagnoses Diagnosis Pain in left foot- Primary Pain in soft tissues of limb Pressure injury of left heel, stage 1 Tinea pedis of both feet documented in this encounter Care Teams Manager Reliability Relationship Specialty Start Date End Date Iggy Merlos MD [address] [place] [address] [address] [place] [address] PCP - General Internal Medicine 08/21/22 12/03/22 documented as of this encounter Additional Source Comments The information contained in this document represents components of the legal health record. It is not the complete legal health record.[facility]
--- OUTSIDE RECORDS SUMMARY | 2024-09-13 13:50 | XMS_ITS | Encounter Summary ---
Author Organization [facility] Address [phone] [facility] [place] [address] Care Team Providers Care High School Math Tutor Name Role Phone Gianfranco Null MD Primary Care Provider [phone] Encounter Details Date Type Department Care Team (Latest Contact Info) Description 05/21/2017 7:00 AM EDT - 05/21/2017 11:59 PM EDT Hospital Encounter [facility] HERNÁNDEZ [address] [facility] [place] [address] Camden Talamantes OD [address] [place] [address] Discharge Disposition: Home or Self Care Social History Tobacco Use Types Packs/Day Years Used Date Smoking Tobacco: Never Assessed Sex and Gender Information Value Date Recorded Sex Assigned at Not on file Gender Identity Not on file Sexual Orientation Not on file documented as of this encounter Plan of Treatment Upcoming Encounters Date Type Department Care Team (Late st Contact Info) Description 11/18/2024 9:15 AM EDT Office Visit [facility] [address] [address] Karlos Thayer DPM [address] [address] documented as of this encounter Visit Diagnoses Not on filedocumented in this encounter Care Teams High School Math Tutor Relationship Specialty Start Date End Date Gianfranco Null MD [address] [place] [id number] [email or web address] PCP - General 09/03/13 08/20/22 documented as of this encounter Additional Source Comments The information contained in this document represents components of the legal health record. It is not the complete legal health record.[facility]
--- OUTSIDE RECORDS SUMMARY | 2024-09-13 13:50 | XMS_ITS | Encounter Summary ---
Author Organization [facility] Address [phone] [facility] [address] [address] Care Team Providers Care Mobile Home Installer Name Role Phone Iggy Merlos MD Primary Care Provider Encounter Details Date Type Department Care Team (Late st Contact Info) Description 08/21/2022 10:30 AM EST Office Visit [facility] [address] [address] Karlos Thayer DPM [address] [address] [email or web address] Pain in left foot (Primary [...] Progress Notes * Karlos Thayer DPM - 08/21/2022 10:30 AM EST Images from the original note were not included. CC: Left heel pain HPI: This is a 67 y.o. male patient with past medical history as below presenting today for left heel pain. This pain has been going on for approximately 1 week now. His has been applying a cream to the area that has not been helping. He does lay in bed at night with his feet elevated on a platform to help with edema and swelling. His foot and leg do kenn and put pressure on the platform. He states he has dealt with fungal skin infection throughout his life. Nothing seems to help with thepain. Denies any trauma or stepping on anything sharp. Patient denies other conservative therapies or acute [...] with the [facility] [place]: There are no problems to display for this patient. No current outpatient medications on file. No current facility-administered medications for this visit. [...] wounds, no ecchymosis to lateral left heel. Stage I pressure injury. Bilateral plantar foot diffusely erythematous [...] to all compartments b/l d/p/i/e. Radiographic examination: X-rays, 3 views weight-bearing of the foot or ankle were taken in my office. No signs of fracture or dislocation. Soft tissue anatomy within normal limits. No signs of infection. ASSESSMENT: Tinea pedis, bilateral Stage I pressure injury left heel Pain and left foot PLAN: Extended conversation [...] per day to decrease chance for infection. Rx Lotrisone. He can also utilize fungal spray if difficult to apply cream daily. Instructed patient to decrease pressure to left lower extremity when he is sleeping. He is to applya pillow and/or blanket to his ankle so he is not putting increased pressure on his lateral heel. Iapplied a felt offloading pad today which should help offload the area. He can purchase additional pads tizh-jbo-iwkffel at the local pharmacy. Greater than 30 minutes spent in consultation with this patient [...] or increased symptoms arise. Return to office: 4 to 6 weeks. Karlos Thayer DPM This note was generated with a voice recognition software please excuse any errors or omissions documented in this encounter Plan of Treatment Upcoming Encounters Date Type Department Care Team ([facility] st Contact Info) Description 11/18/2024 9:15 AM EDT Office Visit [facility] [address] [address] Karlos Thayer DPM [address] [address] [email or web address] documented as of this encounter Visit Diagnoses Diagnosis Pain in left foot- Primary Pain in soft tissues of limb Pressure injury of left heel, stage 1 Tinea pedis of both feet documented in this encounter Care Teams Mobile Home Installer Relationship Specialty Start Date End Date Iggy Merlos MD [address] [place] [address] [address] [place] [address] PCP - General Internal Medicine 08/21/22 12/03/22 documented as of this encounter Additional Source Comments The information contained in this document represents components of the legal health record. It is not the complete legal health record.[facility]
--- OUTSIDE RECORDS SUMMARY | 2024-09-13 13:50 | XMS_ITS | Encounter Summary ---
Author Organization [facility] Address [phone] [facility] [place] [address] Care Team Providers Care Atv Mechanic Name Role Phone Zuniga, Sanam Little DO Primary Care Provider Encounter Details Date Type Department Care Team (Late Contact Info) Description 07/30/2023 Orders Only [facility] Weight Center [address] [address] Order Mode, Motor Expert 2 [place] [address] Obesity, unspecified classification, unspecified obesity type, unspecified whether serious comorbidity present (Primary Dx) Social History Tobacco Use Types Packs/Day Years [...] Description 11/18/2024 9:15 AM EDT Office Visit [facility] [address] [address] Karlos Thayer DPM [address] [address] [email or web address] documented as of this encounter Visit Diagnoses Diagnosis Obesity, unspecified classification, unspecified obesity type, unspecified whether serious comorbidity present- Primary documented in this encounter Care Teams Atv Mechanic Relationship Specialty Start Date End Date Sanam Zuniga DO [address] [place] [phone] PCP - General Family Medicine 12/04/22 documented as of this encounter Additional Source Comments The information contained in this document represents components of the legal health record. It is not the complete legal health record.[facility]
--- OUTSIDE RECORDS SUMMARY | 2024-09-13 13:50 | XMS_ITS | Encounter Summary ---
Author Organization [facility] Address [phone] Critical [place] [address] Care Team Providers Care Plaster Block Layer Name Role Phone Zungia, Sanam Little DO Primary Care Provider [phone] Encounter Details Date Type Department Care Team (Late st Contact Info) Description 12/04/2022 10:00 AM EDT Office Visit [facility] [address] [address] Karlos Thayer DPM [address] [address] [email or web address] Pressure injury of left heel, stage 1 (Primary Dx); Tinea pedis of both feet; Onychomycosis; Pain in toes of both feet Social History Tobacco Use Types Packs/Day Years Used Date Smoking Tobacco: Never Assessed Sex and Gender Information Value Date Recorded Sex Assigned at Not on file Gender Identity Not on file Sexual Orientation Not on file documented as of this encounter Progress Notes * Karlos Thayer DPM - 12/04/2022 10:00 AM EDT Images from the original note [...] this could be part of his problem. Patient denies other conservative therapies or acute [...] with the following [facility] [place]: There are no problems [...] if difficult to apply cream daily. Patient also to continue with foot powder to help keep the area dry because he does not typically wear socks. Patient to continue to decrease pressure to left heel especially while sleeping with offloading blankets. He can also pursue Prevalon boot to help with offloading as well. We briefly discussed supportive shoe wear. I suggested patient visit [facility] to have his foot sized and fitted for a properly fitting shoe. I suggested the Duran beast as a good role model for [...] Return to office: 3 months, evaluate tinea pedis nail care if needed Karlos Thayer DPM This note was generated with a voice recognition software please excuse any errors or omissions documented in this encounter Plan of Treatment Upcoming Encounters Date Type Department Care Team (Late st Contact Info) Description 11/18/2024 9:15 AM EDT Office Visit [facility] [address] [address] Karlos Thayer DPM [address] [address] [email or web address] documented as of this encounter Visit Diagnoses Diagnosis Pressure injury of left heel, stage 1- Primary Tinea pedis of both feet Onychomycosis Dermatophytosis of nail Pain in toes of both feet documented in this encounter Care Teams Plaster Block Layer Relationship Specialty Start Date End Date Sanam Zuniga DO [address] [place] [phone] PCP - General Family Medicine 12/04/22 documented as of this encounter Additional Source Comments The information contained in this document represents components of the legal health record. It is not the complete legal health record.[facility]
--- OUTSIDE RECORDS SUMMARY | 2024-09-13 13:50 | XMS_ITS | Encounter Summary ---
Author Organization [facility] Address [phone] [facility] [place] [address] Care Team Providers Care Granulator Machine Operator Name Role Phone Iggy Merlos MD Primary Care Provider Reason for Referral * Consultation (Within 1 month) - Closed Specialty Diagnoses / Procedures Referred By Contac t Referred To Contact Diagnoses Morbid (severe) obesity due to excess calories System, Provider Not In, PhD [facility] [address] [place], [place] [address] Parent [address] [place] [address] Referral ID Status Reason Start Date Expiration Date Visits Re quested Visits Authorized [id number] Closed 11/01/2022 11/02/2023 1 1 Encounter Details Date Type Department Care Team ([facility] Contact Info) Description 11/01/2022 Orders Only [facility] [address] [facility] [address] [address] Order Mode, Engineer Technical Staff 2 [place] [address] Morbid (severe) obesity due to excess calories (Primary Dx) Social History Tobacco Use Types Packs/Day Years Used Date Smoking Tobacco: Never Assessed Sex and Gender Information Value Date Recorded Sex Assigned at Not on file Gender Identity Not on file Sexual Orientation Not on file documented as of this encounter Plan of Treatment Upcoming Encounters Date Type Department Care Team (Late Contact Info) Description 11/18/2024 9:15 AM EDT Office Visit [facility] [address] [address] Karlos Thayer DPM 1244 [facility] [address] [place] [address] [email or web address] Scheduled Referrals Name Type Priority Associated Diagnoses Order Schedule Ambulatory referral to [facility] Outpatient Referral Routine Morbid (Severe) Obesity Due To Excess Calories Ordered: 11/01/2022 documented as of this encounter Visit Diagnoses Diagnosis Morbid (severe) obesity due to excess calories- Primary documented in this encounter Care Teams Granulator Machine Operator Relationship Specialty Start Date End Date Iggy Merlos MD [address] [place] [address] [address] [place] [address] PCP - General Internal Medicine 08/21/22 12/03/22 documented as of this encounter Additional Source Comments The information contained in this document represents components of the legal health record. It is not the complete legal health record.[facility]
--- OUTSIDE RECORDS SUMMARY | 2024-09-13 13:50 | XMS_ITS | Encounter Summary ---
Author Organization [facility] Address [phone] [facility] [address] Care Team Providers Care Internet Programmer Name Role Phone Zuniga, Sanam Little DO Primary Care Provider [phone] Encounter Details Date Type Department Care Team (Late st Contact Info) Description 02/19/2023 10:00 AM EDT Office Visit [facility] [address] [address] Karlos Thayer DPM [address] [address] [email or web address] Tinea pedis of both feet (Primary Dx); Onychomycosis; Pain in toes of both feet; Pressure injury of left heel, stage 1 Social History Tobacco Use Types Packs/Day Years [...] Progress Notes * Karlos Thayer DPM - 02/19/2023 10:00 AM EDT Images from the original [...] with the help of his significant other. Patient denies other conservative therapies or acute [...] with the following history as recorded in [facility]: There are no problems to display for [...] because he does not typically wear socks. Would recommend increased frequency of application in [...] Description 11/18/2024 9:15 AM EDT Office Visit [facility] [address] [address] Karlos Thayer DPM [address] [address] [email or web address] documented as of this encounter Visit Diagnoses Diagnosis Tinea pedis of both feet- Primary Onychomycosis Dermatophytosis of nail Pain in toes of both feet Pressure injury of left heel, stage 1 documented in this encounter Care Teams Internet Programmer Relationship Specialty Start Date End Date Sanam Zuniga DO [address] [place] [phone] PCP - General Family Medicine 12/04/22 documented as of this encounter Additional Source Comments The information contained in this document represents components of the legal health record. It is not the complete legal health record.[facility]
--- OUTSIDE RECORDS SUMMARY | 2024-09-13 13:51 | XMS_ITS | Encounter Summary ---
Author Organization [facility] Address [phone] [facility] [place] [address] Care Team Providers Care Soft Top Installer Name Role Phone Gianfranco Null MD Primary Care Provider [phone] Encounter Details Date Type Department Care Team (Latest Contact Info) Description 02/17/2017 8:00 AM EDT - 02/17/2017 11:59 PM EDT Hospital Encounter [facility] [address] [address] [place] [address] Discharge Disposition: Home or Self Care Social [...] Description 11/18/2024 9:15 AM EDT Office Visit [facility] [address] [address] Karlos Thayer DPM [address] [address] documented as of this encounter Visit Diagnoses Not on filedocumented in this encounter Care Teams Soft Top Installer Relationship Specialty Start Date End Date Gianfranco Null MD [address] [place] [phone] [email or web address] PCP - General 09/03/13 08/20/22 documented as of this encounter Additional Source Comments The information contained in this document represents components of the legal health record. It is not the complete legal health record.[facility]
--- OUTSIDE RECORDS SUMMARY | 2024-09-13 13:51 | XMS_ITS | Encounter Summary ---
Author Organization [facility] Address [phone] [facility] [place] [address] Care Team Providers Care Counseling Department Chair Name Role Phone Gianfranco Null MD Primary Care Provider [phone] Encounter Details Date Type Department Care Team (Latest Contact Info) Description 11/20/2015 8:19 AM EDT - 11/20/2015 11:59 PM EDT Hospital Encounter [facility] [address] [place] [address] [place] [address] Discharge Disposition: Home or Self Care Social [...] Description 11/18/2024 9:15 AM EDT Office Visit [facility] [address] [address] Karlos Thayer DPM [address] [address] documented as of this encounter Visit Diagnoses Not on filedocumented in this encounter Care Teams Counseling Department Chair Relationship Specialty Start Date End Date Gianfranco Null MD [address] [place] [address] [email or web address] PCP - General 09/03/13 08/20/22 documented as of this encounter Additional Source Comments The information contained in this document represents components of the legal health record. It is not the complete legal health record.[facility]
--- OUTSIDE RECORDS SUMMARY | 2024-09-13 13:51 | XMS_ITS | Encounter Summary ---
Author Organization [facility] Address [phone] Critical [place] [address] Care Team Providers Care Bit Welder Name Role Phone Gianfranco Null MD Primary Care Provider [phone] Encounter Details Date Type Department Care Team (Latest Contact Info) Description 06/13/2016 10:34 AM EDT - 06/13/2016 11:59 PM EDT Hospital Encounter [facility] [address] [address] [place] [address] Discharge Disposition: Home or Self Care Social [...] Description 11/18/2024 9:15 AM EDT Office Visit [facility] [address] [address] Karlos Thayer DPM [address] [address] documented as of this encounter Visit Diagnoses Not on filedocumented in this encounter Care Teams Bit Welder Relationship Specialty Start Date End Date Gianfranco Null MD [address] [place] [phone] [email or web address] PCP - General 09/03/13 08/20/22 documented as of this encounter Additional Source Comments The information contained in this document represents components of the legal health record. It is not the complete legal health record.[facility]
--- OUTSIDE RECORDS SUMMARY | 2024-09-13 13:51 | XMS_ITS | Encounter Summary ---
Author Organization [facility] Address [phone] [facility] [place] [address] Care Team Providers Care Turret Lathe Tender Name Role Phone Gianfranco Null MD Primary Care Provider [phone] Encounter Details Date Type Department Care Team (Latest Contact Info) Description 05/15/2017 11:08 AM EDT - 05/15/2017 11:59 PM EDT Hospital Encounter [facility] [address] [address] [place] [address] Discharge Disposition: Home or Self Care Social [...] Description 11/18/2024 9:15 AM EDT Office Visit [facility] [address] [address] Karlos Thayer DPM [address] [address] documented as of this encounter Visit Diagnoses Not on filedocumented in this encounter Care Teams Turret Lathe Tender Relationship Specialty Start Date End Date Gianfranco Null MD [address] [place] [phone] [email or web address] PCP - General 09/03/13 08/20/22 documented as of this encounter Additional Source Comments The information contained in this document represents components of the legal health record. It is not the complete legal health record.[facility]
--- OUTSIDE RECORDS SUMMARY | 2024-09-13 13:51 | XMS_ITS | Encounter Summary ---
Author Organization [facility] Address [phone] [facility] [address] [place] [address] Care Team Providers Care Heatset Winder Operator Name Role Phone Gianfranco Null MD Primary Care Provider [phone] Encounter Details Date Type Department Care Team (Latest Contact Info) Description 09/02/2016 11:23 AM EST - 09/02/2016 11:59 PM [facility] Hospital Encounter [facility] [address] [address] [place] [address] Discharge Disposition: Home or Self Care Social [...] Description 11/18/2024 9:15 AM EDT Office Visit [facility] [address] [address] Karlos Thayer DPM [address] [address] documented as of this encounter Visit Diagnoses Not on filedocumented in this encounter Care Teams Heatset Winder Operator Relationship Specialty Start Date End Date Gianfranco Null MD [address] [place] [address] [email or web address] PCP - General 09/03/13 08/20/22 documented as of this encounter Additional Source Comments The information contained in this document represents components of the legal health record. It is not the complete legal health record.[facility]
== END 2024-09-13 14:04 ==
LOC: DI 13:47
PROVIDERS: PCP Internal Medicine Cardiovascular Disease; Visit Provider Nurse Practitioner Family
DX: R05.9 Cough, unspecified (principal)
CPT/HCPCS: 71046

== ENCOUNTER 2025-05-06 11:06 | Outpatient (CLI) | payer MEDICARE, SELFPAY ==
[2025-05-06 11:07] LABS: INR 3.7 (0.9-1.1); Prothrombin Time 34.2 sec (9.1-11.1)
== END 2025-05-06 11:07 | disposition home or self-care (01) ==
LOC: LBO 11:06
PROVIDERS: PCP Internal Medicine Cardiovascular Disease; Visit Provider Internal Medicine Cardiovascular Disease
DX: I48.91 Unspecified atrial fibrillation (principal); I48.92 Unspecified atrial flutter
CPT/HCPCS: 36415; 85610

== ENCOUNTER 2025-06-17 02:57 | Outpatient (CLI) | payer MEDICARE, SELFPAY ==
[2025-06-17 08:58] LABS: INR 3.3 (0.9-1.1); Prothrombin Time 30.8 sec (9.1-11.1)
== END 2025-06-17 02:58 | disposition home or self-care (01) ==
LOC: LBO 02:57
PROVIDERS: PCP Internal Medicine Cardiovascular Disease; Visit Provider Internal Medicine Cardiovascular Disease
DX: I48.0 Paroxysmal atrial fibrillation (principal)
CPT/HCPCS: 36415; 85610